=== PATIENT | female | born 1945 | race African-American/Black ===

== ENCOUNTER 2017-07-05 12:56 | Observation (INO) | payer MEDICARE, OTHER ==
[2017-07-05 14:09] LABS: #Eosinphils 0.1 thou/uL (0.0-0.7); #Lymphocytes 1.3 thou/uL (1.20-3.40); #Monocytes 0.4 thou/uL (0.11-0.59); #Neutrophils 5.8 thou/uL (1.40-6.50); %Basophils 0.5 % (0.0-1.0); %Eosinophils 1.4 % (0.0-10.0); %Lymphocytes 16.5 % (21.0-51.0); %Monocytes 4.9 % (0.0-10.0); Hematocrit 36.4 % (36.0-47.0); Mean Platelet Volume 7.6 fL (7.4-10.4); Red Blood Cell (RBC) Count 4.02 mill/uL (4.20-5.40); White Blood Cell (WBC) Count 7.6 thou/uL (4.8-10.8)
--- NOTE | 2017-07-05 14:18 | RAD ---
CHEST 1 VIEW: Date: 07/05/17 HISTORY: Chest pain. FINDINGS: The cardiac silhouette is magnified by projection. Pulmonary vasculature is unremarkable. Mediastinu m is midline. There is no lobar consolidation or evidence of pneumothorax. case monitor leads ove rlie the chest. IMPRESSION: No active cardiopulmonary abnormalities are demonstrated. POS: [facility]
[2017-07-05 14:30] LABS: PTT 32.2 SEC (22.9-36.1); Prothrombin Time 14.1 SEC (12.0-14.7)
[2017-07-05 14:31] LABS: Bilirubin Negative (Negative); Blood, Urine Negative (Negative); Glucose, Urine (Dipstick) Negative (Negative); Ketone, Urine Negative (Negative); Nitrite Negative (Negative); Protein, Urine (Dipstick) 30 mg/dL (Neg-Trace); Urobilinogen 0.2 mg/dL (0.2-1.0)
[2017-07-05 14:32] LABS: ALT (SGPT) 11 U/L (8-55); AST (SGOT) 20 U/L (5-34); Alkaline Phosphatase 66 U/L (40-150); Anion Gap 12 mmol/L (10-20); BUN (Urea Nitrogen) 12 mg/dL (9.8-20.1); Bilirubin, Total 0.4 mg/dL (0.2-1.2); Calc. Creatinine Clearance 0 mL/min (70-130); Calcium 10.3 mg/dL (7.8-10.44); Carbon Dioxide 28 mmol/L (23-31); Chloride 105 mmol/L (98-107); Estimated GFR-MDRD 68; Globulin 5.6 g/dL (2.4-3.5); Protein, Total 9.5 g/dL (6.0-8.3)
[2017-07-05 14:35] LABS: Troponin I Less than 0.010 ng/mL (< 0.028)
[2017-07-05 14:44] LABS: Bacteria/HPF Rare-Few HPF (None Seen); RBC/HPF None Seen HPF (0-3); WBC/HPF 0-3 HPF (0-3)
[2017-07-05 14:45] LABS: Hyaline Casts/LPF NONE SEEN LPF (0-3 Hyaline)
[2017-07-05] MEDS ORDERED: Acetaminophen 325 MG TAB PO PRN (16:29)
[2017-07-05] MEDS ORDERED: Nitroglycerin 0.4 MG TAB (25 Tab Bottle) SL PRN (16:29)
[2017-07-05 16:55] VITALS: BMI 27.3
[2017-07-05 20:57] LABS: Troponin I 0.015 ng/mL (< 0.028)
--- NOTE | 2017-07-06 00:39 | HP-2 ---
CODE STATUS: FULL. PRIMARY CARE PHYSICIAN: Dr. Valle. ATTENDING PHYSICIAN: Dr. Valle. PGY-1: Dr. Shira Tobar. CHIEF COMPLAINT: Chest pain. HISTORY OF PRESENT ILLNESS: This is a 72-year-old female with past medical history of hypertension and hypothyroidism that presents with a 1-day history of squeezing chest pain. She rates this pain as 5/10 when it is present. She has not tried to take anything to relieve the pain; however, she does state that the pain is intermittent in nature with episodes lasting a few minutes at a time. She denies any shortness of breath, cough, nausea, or diaphoresis. She was seen in the clinic today by Dr. Valle in [place]. EKG was done at that time, which showed some ST changes. Additionally, the patient was given nitro in the office, which really seems to relieve her chest pain. The patient was sent to [facility] for further evaluation. The patient states that she has not had an echo, cardiac catheterization, or stress test done in the past; however, there are records that show that she had an echo performed in 2016, which was normal. Of note, chest pain is currently absent. PAST MEDICAL HISTORY: 1. Hypothyroidism. 2. Hypertension. PAST SURGICAL HISTORY: None. ALLERGIES: No known drug allergies. MEDICATIONS: 1. Amlodipine 10 mg oral daily. 2. Atorvastatin 20 mg oral daily. 3. Bisoprolol/hydrochlorothiazide 10/6.25 mg oral daily. 4. Losartan 50 mg oral daily. 5. Synthroid 75 mcg oral daily. 6. Vitamin E of 1000 units. 7. Fish oil 1000 mg oral daily. 8. Biotin 10,000 mcg oral daily. 9. Vitamin D3 of 1000 units daily. 10. Aspirin 81 mg oral daily. FAMILY HISTORY: No known family history of coronary artery disease. Patient does endorse family history of diabetes and thyroid disease. SOCIAL HISTORY: Patient denies tobacco use. She states that she drinks occasionally, maybe one glass of wine every other night. She denies any drug use. REVIEW OF SYSTEMS: A 12-point review of systems was performed, all were negative except as listed in the HPI and as indicated below. Patient does endorse chest pain as indicated in the HPI. Additionally, she states that she has some lower extremity edema that seems to be apparent during the day, but that resolves at night. She was also lightheaded over the past day since the symptoms have been present. Additionally, she reports anxiety, particularly associated with her current condition. She is afraid that something is wrong with her heart. PHYSICAL EXAMINATION: VITAL SIGNS: Blood pressure 144/76, pulse 55, respiratory rate 16, T-max 98.5, pulse oximetry 96% on room air, current weight 73 kilograms. GENERAL: Patient is alert and oriented x3, in no acute distress, well developed , well nourished, appropriately interactive. EYES: Pupils are equally round and reactive to light and accommodation. Extraocular muscles intact. Conjunctivae within normal limits. ENT: Nasal mucosa within normal limits. Oropharynx within normal limits. NECK: Supple, without lymphadenopathy, thyromegaly. CARDIOVASCULAR: Regular rate and rhythm, no murmurs. Radial pulses 2+, pedal pulses 2+. RESPIRATORY: Normal respiratory effort, no retractions, clear to auscultation bilaterally. SKIN: Warm and dry without cyanosis or lesions. ABDOMEN: Soft, nontender to palpation. Bowel sounds positive in all 4 quadrants. No masses or distention. EXTREMITIES: No clubbing, cyanosis, and only trace edema, nonpitting. MUSCULOSKELETAL: Structure within normal limits and tone within normal limit. Muscle strength 5/5. Patient has full range of motion. NEUROLOGIC: No focal deficits. Cranial nerves II through XII intact. GCS 15. PSYCHIATRIC: Appropriate. LABORATORY DATA: 1. CBC: White blood cell count 7.0, hemoglobin 11.5, hematocrit 36.4, platelets 162, 76.7% neutrophils. 2. CMP: Sodium 141, potassium 3.8, chloride 105, bicarbonate 28, BUN 12, creatinine 0.91, glucose 101, calcium 10.3, total bilirubin 0.4, total protein 9.5, albumin 3.5, AST 20, ALT 11, alkaline phosphatase 66. 3. PT 14.1, PTT 32.2, INR 1.1. 4. CK 50. 5. CK-MB 0.9, troponin less than 0.01. 6. UA shows trace leukocyte esterase and 30 protein, no rbc's or wbc's, rare bacteria. 7. EKG with normal sinus rhythm. 8. Chest x-ray, no acute abnormalities. ASSESSMENT AND PLAN: This is a 72-year-old female with past medical history of hypertension and hypothyroidism, presenting with intermittent chest pain. 1. Atypical chest pain. Admit to tele with observation. Cardiac stress test to be performed in the morning. We will make patient n.p.o. at midnight and hold beta blockers. Additionally, we will obtain labs to include TSH, magnesium , phosphate, fasting lipid panel. Patient's troponins are being trended. Patient will be on aspirin daily and nitro p.r.n. for chest pain. 2. Hypertension. Continue home medications once the patient has initial stress test. We will put hydralazine p.r.n. for systolic blood pressure greater than 160. 3. Hypothyroidism, the patient had thyroid checked yesterday. TSH was 2.8. We will continue home medications. DISPOSITION AND LENGTH OF HOSPITAL STAY: One day. Symptomatic medications will be provided. History and physical exam as well as management have been discussed with Dr. Valle. DANNA
[2017-07-06] MEDS ORDERED: ADENOSINE 60 MG/20 ML VIAL ONE ×2 (03:50→11:40)
[2017-07-06 04:30] LABS: #Eosinphils 0.2 thou/uL (0.0-0.7); #Lymphocytes 1.3 thou/uL (1.20-3.40); #Monocytes 0.3 thou/uL (0.11-0.59); #Neutrophils 3.6 thou/uL (1.40-6.50); %Basophils 0.3 % (0.0-1.0); %Lymphocytes 24.7 % (21.0-51.0); %Monocytes 6.2 % (0.0-10.0); Hematocrit 35.3 % (36.0-47.0); Mean Platelet Volume 7.8 fL (7.4-10.4); Red Blood Cell (RBC) Count 3.91 mill/uL (4.20-5.40); White Blood Cell (WBC) Count 5.4 thou/uL (4.8-10.8)
[2017-07-06 04:49] LABS: Anion Gap 11 mmol/L (10-20); BUN (Urea Nitrogen) 12 mg/dL (9.8-20.1); Calc. Creatinine Clearance 69 mL/min (70-130); Calcium 9.9 mg/dL (7.8-10.44); Carbon Dioxide 28 mmol/L (23-31); Chloride 105 mmol/L (98-107); Cholesterol 177 mg/dl (< 200 Desired); Estimated GFR-MDRD 78; LDL Cholesterol, Calculated 102 mg/dL
[2017-07-06 04:53] VITALS: TEMP 98.6
[2017-07-06] MEDS ORDERED: Levothyroxine Sodium 75 MCG TAB PO SCH (06:00)
--- NOTE | 2017-07-06 06:08 | PDOC.FM ---
- Subjective Subjective: Mrs. Nelson has no complaints or concerns this morning. Denies any chest pain since admission, dyspnea, n/v/d/abd pain. Ready to go for stress test this morning. - Objective MAR Reviewed: Yes Vital Signs & Weight: Vital Signs (12 hours) Temp Pulse Resp BP BP Pulse Ox 07/06/17 04:00 98.6 F 65 14 147/65 H 96 07/06/17 01:45 98 07/05/17 23:38 98.4 F 61 16 129/62 97 07/05/17 20:00 98.6 F 66 18 07/05/17 19:21 98.6 F 66 18 120/59 L 99 Weight Weight 74.588 kg I&O: 07/04/17 07/05/17 07/06/17 06:59 06:59 06:59 Intake Total 661 Output Total 875 Balance -214 Result Diagrams: 07/06/17 03:50 07/06/17 03:50 EKG Reviewed by me: Yes (NSR) Radiology Reviewed by me: Yes <Korey Villalba - Last Filed: 07/06/17 07:35> - Objective Vital Signs & Weight: Vital Signs (12 hours) Temp Pulse Resp BP BP Pulse Ox 07/06/17 11:41 68 07/06/17 11:39 68 18 159/70 H 07/06/17 07:31 98.6 F 65 14 07/06/17 07:18 98.7 F 58 L 16 151/72 H 98 07/06/17 04:00 98.6 F 65 14 147/65 H 96 07/06/17 01:45 98 Weight Weight 164 lb 7 oz I&O: 07/05/17 07/06/17 07/07/17 06:59 06:59 06:59 Intake Total 661 Output Total 875 300 Balance -214 -300 Result Diagrams: 07/06/17 03:50 07/06/17 03:50 <Amy Valle - Last Filed: 07/06/17 12:23> Phys Exam - Physical Examination Constitutional: NAD HEENT: moist MMs, sclera anicteric Neck: supple, full ROM Respiratory: no wheezing, no rales, no rhonchi, clear to auscultation bilateral Cardiovascular: RRR, no significant murmur, no rub, gallop Gastrointestinal: soft, non-tender, no distention, positive bowel sounds Musculoskeletal: no edema, pulses present Neurological: non-focal, normal sensation, moves all 4 limbs Psychiatric: normal affect, A&O x 3 Skin: cap refill <2 seconds <Korey Villalba - Last Filed: 07/06/17 07:35> Dx/Plan (1) Atypical chest pain Code(s): R07.89 - OTHER CHEST PAIN Status: Acute Plan: -Cardiac Stress Test this morning -FLP and TSH neg -Daily aspirin and nitro prn (2) Hypertension Code(s): I10 - ESSENTIAL (PRIMARY) HYPERTENSION Status: Acute Plan: -cont home meds after stress test -hydralazine prn for sys BP >160 (3) Hypothyroidism Code(s): E03.9 - HYPOTHYROIDISM, UNSPECIFIED Status: Acute Plan: -TSH 2.8, cont home meds - Plan Plan: Will likely be ready for discharge if stress test is normal. <Korey Villalba - Last Filed: 07/06/17 07:35> Attending Addendum - Attending Addendum I personally evaluated the patient and discussed the management with Dr. Villalba. I agree with the History, Examination, Assessment and Plan documented above with any addition or exceptions noted below. Please see handwritten note. Patient has been chest pain free since getting NTG yesterday. Cardiac enzymes are negative. LDL 102 with 10 year ASCVD risk of 16.2 %, so statin dose increased and will need to optimize BP. BNP 370.7, so will check outpatient Echo. Total protein and globulin elevated with proteinuria. Will repeat as outpatient and if still abnormal, get SPEP and UPEP. Stress test negative with EF 70%, so will discharge home with outpatient follow-up. <Amy Valle - Last Filed: 07/06/17 12:23>
[2017-07-06] MEDS ORDERED: Losartan Potassium 25 MG TAB PO SCH (09:00)
[2017-07-06] MEDS ORDERED: Fish Oil 1,000 MG CAP PO SCH (09:00)
[2017-07-06] MEDS ORDERED: Aspirin 81 mg Enteric Coated Tablet PO SCH (09:00)
[2017-07-06 12:19] VITALS: BP 145/65
--- NOTE | 2017-07-06 12:35 | NM ---
RADIONUCLIDE STRESS REST MYOCARDIAL PERFUSION SCAN WITH CT ATTENUATION CORRECTION AND SPECT IMAGING LEFT VENTRICULAR WALL MOTION EVALUATION AND EJECTION FRACTION: HISTORY: Chest pain. Hypertension. FINDINGS: Adenosine protocol was used. On the stress and rest images, there is heterogeneous uptake of radiot racer throughout the left ventricular myocardium. No focal perfusion defect or reversibility are ap parent. QGS analysis of gated SPECT images shows no focal wall motion abnormalities. The left ventricular ejection fraction at 77%. IMPRESSION: 1. normal myocardial perfusion scan showing 2. Normal left ventricular ejection fraction. POS: [facility]
--- NOTE | 2017-07-06 13:39 | DIS-2 ---
DATE OF ADMISSION: 07/05/2017 DATE OF DISCHARGE: 07/06/2017 RESIDENT: Korey Villalba MD ADMITTING ATTENDING: Amy Valle MD DISCHARGE ATTENDING: Amy Valle MD CONSULTS: None. PROCEDURES: 1. Chest x-ray. Impression: No active cardiopulmonary abnormalities are demonstrated. 2. Nuclear medicine stress test. Impression: Normal myocardial perfusion scan showing normal left ventricular ejection fraction at 77%. DISCHARGE MEDICATIONS: Resume home medications: 1. Vitamin E 1000 units p.o. daily. 2. Fish oil 1 cap p.o. daily. 3. Vitamin D3 1000 units p.o. daily. 4. Multivitamin 1 tab p.o. daily. 5. Atorvastatin 40 mg p.o. at bedtime. 6. Aspirin 81 mg p.o. daily. 7. Amlodipine 10 mg p.o. daily. 8. Synthroid 75 mcg p.o. daily. 9. Bisoprolol fumarate/hydrochlorothiazide 10 mg/6.25 mg 1 tab p.o. daily. 10. Losartan 50 mg p.o. daily. 11. Biotin 10,000 mcg p.o. daily. DISCONTINUED MEDICATION: Atorvastatin 20 mg p.o. at bedtime. HISTORY OF PRESENT ILLNESS AND HOSPITAL COURSE: Marlena Nelson is a 72-year-old female with past medical history of hypertension, hyperlipidemia, and hypothyroidism who presents with a 1-day history of ch est pain. She rated the pain as 5/10. She said the pain is intermittent, lasting only a minute or two each time. She denied any shortness of breath, cough, nausea, or diaphoresis. She was seen in the clinic by Dr. Valle in [place], EKG was done at that time, which showed some ST changes. Additionally, the patient was given nitro in the office, which seemed to relieve her chest pain. S he was sent to [facility] ED for further evaluation. Records show that an echo was done in 2016, which was normal. Upon admission to the hospital, she was no longer having any ch est pain. Upon admission, she had a CK-MB of 0.9. Troponin less than 0.01, CK 50, then EKG that sh owed normal sinus rhythm. Chest x-ray that showed no acute abnormalities. Troponins were trended a nd they were all negative. Her chest pain never returned throughout the entirety of her admission. She had a nuclear stress test performed the day of discharge, which was normal, showed an ejection fraction of 77% with a normal perfusion scan. Her blood pressures were running high in the 140s to 150s over 60s to 70s while in the hospital, but she had not taken all of her blood pressure medicati ons. She was instructed to resume home medications upon discharge. She was cleared for discharge a fter having a normal stress test. The patient was in agreement with the plan and stated that she wo uld have close followup with her primary care physician. DISPOSITION: Stable. DISCHARGE INSTRUCTIONS: 1. Location: Home. 2. Diet: Heart healthy. 3. Activity: As tolerated. 4. Follow up with primary care physician in the next week.
[2017-07-06] MEDS ORDERED: Atorvastatin Calcium 40 MG TAB PO SCH (21:00)
[2017-07-06] MEDS ORDERED: Atorvastatin Calcium 20 MG TAB PO SCH (21:00)
== END 2017-07-06 13:11 | disposition home or self-care (01) ==
LOC: ERS 12:56 → 2SW 15:33 → INTOOBSV 15:33
PROVIDERS: ADMIT Family Medicine; ATTEND Family Medicine
DX: R07.89 Other chest pain (principal); I10 Essential (primary) hypertension; E78.5 Hyperlipidemia, unspecified; E03.9 Hypothyroidism, unspecified; Z79.82 Long term (current) use of aspirin; Z79.899 Other long term (current) drug therapy; Z87.891 Personal history of nicotine dependence
CPT/HCPCS: 71010; 78452; 80048; 80061; 82550; 82553; 83880; 84484 ×2; 85025; 85610; 85730; 93005; 93017; 94760 ×2; 96374; 99285; A9500; G0378; 36415; 80053; 81003; 81015; 84443; J0153; J0360

== ENCOUNTER 2017-10-28 08:25 | Outpatient (CLI) | payer MEDICARE | END 2017-10-28 08:26 | disposition home or self-care (01) | LOC: BICMAMMO 08:25 | PROVIDERS: ATTEND Family Medicine | DX: Z13.820 Encounter for screening for osteoporosis (principal); R60.1 Generalized edema | CPT/HCPCS: 77080; 93970 ==

== ENCOUNTER 2023-08-19 10:32 | Day surgery (SDC) | payer MEDICARE ==
[2023-08-16 15:16] VITALS: BMI 23.3
[2023-08-19] MEDS ORDERED: PHENYLephrine 2.5% Ophth Soln 15 ml Bottle ONE (11:23)
[2023-08-19] MEDS ORDERED: Tropicamide 1% 15 ML BOTTLE OP SCH (11:45)
[2023-08-19] MEDS ORDERED: PHENYLephrine 2.5% Ophth Soln 15 ml Bottle EA EYE SCH (11:45)
== END 2023-08-19 13:15 | disposition home or self-care (01) ==
LOC: SDC 10:32
PROVIDERS: ATTEND Ophthalmology
PROC: 085K3ZZ Destruction of Left Lens, Percutaneous Approach (ICD-10-PCS; principal; 2023-08-19)
PROC: 085J3ZZ Destruction of Right Lens, Percutaneous Approach (ICD-10-PCS; 2023-08-19)
DX: H26.493 Other secondary cataract, bilateral (principal); Z79.82 Long term (current) use of aspirin; Z79.899 Other long term (current) drug therapy

== ENCOUNTER 2025-07-02 13:54 | Outpatient (CLI) | payer MEDICARE ==
[2025-07-02 14:47] LABS: #Basophils Less than 0.03 10x3/uL (0.0-0.2); #Eosinophils 0.08 10x3/uL (0.0-0.7); #Monocytes 0.41 10x3/uL (0.11-0.59); #Neutrophils 3.70 10x3/uL (1.40-6.50); %Basophils 0.4 % (0.0-1.0); %Eosinophils 1.5 % (0.0-10.0); %Lymphocytes 19.6 % (21.0-51.0); %Monocytes 7.8 % (0.0-10.0); %Neutrophils 70.3 % (42.0-75.0); Hematocrit 32.8 % (36.0-47.0); Hemoglobin 10.4 g/dL (12.0-16.0); Mean Corpuscular Hemoglobin 28.4 pg (27.0-31.0); Mean Corpuscular Volume 89.6 fL (78.0-98.0); Platelet Count 115 10x3/uL (130-400); Red Blood Cell (RBC) Count 3.66 mill/uL (4.20-5.40); White Blood Cell (WBC) Count 5.26 10x3/uL (4.8-10.8)
[2025-07-02 14:54] LABS: ALT (SGPT) 19 U/L (Less than 34); AST (SGOT) 34 U/L (11-34); Albumin 3.7 g/dL (3.1-4.5); Alkaline Phosphatase 68 U/L (40-110); Anion Gap 13 mmol/L (10-20); BUN (Urea Nitrogen) 21 mg/dL (9.8-20.1); Bilirubin, Total 0.4 mg/dL (0.3-1.2); Calc. Creatinine Clearance 0 mL/min (70-130); Calcium 9.8 mg/dL (7.8-10.44); Carbon Dioxide 25 mmol/L (23-31); Chloride 105 mmol/L (98-107); Globulin 5.1 g/dL (2.4-3.5); Glucose 96 mg/dL (83-110); Potassium 3.3 mmol/L (3.5-5.1); Sodium 140 mmol/L (136-145)
== END 2025-07-02 13:55 | disposition home or self-care (01) ==
LOC: LABBT 13:54
PROVIDERS: ATTEND Internal Medicine Cardiovascular Disease
DX: Z01.818 Encounter for other preprocedural examination (principal); R94.39 Abnormal result of other cardiovascular function study
CPT/HCPCS: 80053; 85025; 93005; 93010